=== PATIENT | male | born 2000 | race Hispanic/Latino ===

== ENCOUNTER 2021-09-09 18:31 | Emergency (ER) | payer OTHER, SELFPAY ==
[2021-09-09 18:50] VITALS: BP 152/79; PULSE 99; RESP 16; TEMP 37.5; O2SAT 100
--- NOTE | 2021-09-09 18:55 | ED.MALEGU ---
HPI - Male Genitourinary General Chief complaint: Urogenital-Male Stated complaint: STD Time Seen by Provider: 09/09/21 18:55 Source: patient and RN notes reviewed Mode of arrival: ambulatory Limitations: no limitations History of Present Illness HPI Narrative: 20-year-old male presented for complaints of burning at the tip of his penis since 09/01/2021. Burning sensation is constant but decreases in intensity at times. He states it does not increase when he urinates. Endorses recent unprotected sexual activity, stating his partner received negative STD tests on 09/03/2021. He denies any open lesions, or penile discharge. Denies associated abdominal pain, back pain, nausea, vomiting, fevers or chills. Related Data Home Medications Medication Instructions Recorded Confirmed No Home Medications 09/09/21 09/09/21 Allergies Allergy/AdvReac Type Severity Reaction Status Date / Time No Known Allergies Allergy Verified 09/09/21 18:56 Review of Systems Review of Systems: CONSTITUTIONAL: Denies body aches, fever, chills, or sweats. CARDIOVASCULAR: Denies chest pain, palpitations, or edema. RESPIRATORY: Denies cough or dyspnea. GASTROINTESTINAL: Denies abdominal pain, nausea, vomiting, or diarrhea. GENITOURINARY: denies dysuria, frequency, urgency, hematuria, flank pain SKIN: Denies rash, itching, or wounds. MUSCULOSKELETAL: Denies back pain or myalgia. PMFSH Comments At time of signature, I have reviewed and agree with nursing past medical, surgical, social and family history unless otherwise noted. Please see nursing chart for further information. There is no relevant family history pertinent to the presenting complaint Exam Narrative: GENERAL: Well-appearing and in no acute distress. ENT: Mucous membranes pink and moist. CHEST: Clear to auscultation. HEART: Regular rate and rhythm. ABDOMEN: Soft, nontender, nondistended, normal active bowel sounds. No CVA tenderness. Declined exam NEURO: No focal deficits. Alert and oriented x3. Gait steady. PSYCH: Normal affect. Course Course Emergency Course: Patient is aware of diagnosis, understands and agrees to treatment plan. Anticipatory guidance given. Patient agrees to follow-up as directed and is aware of reasons to seek care at the emergency department. Portions of this record may have been created with voice recognition software Level of Care: Express Care Visit Vital Signs Vital signs: Vital Signs Temperature 99.5 F 09/09/21 18:50 Pulse Rate 99 09/09/21 18:50 Respiratory Rate 16 09/09/21 18:50 Blood Pressure 152/79 H 09/09/21 18:50 Pulse Oximetry 100 09/09/21 18:50 Oxygen Delivery Room Air 09/09/21 18:50 Temperature 99.5 F 09/09/21 18:50 Pulse Rate 99 09/09/21 18:50 Respiratory Rate 16 09/09/21 18:50 Blood Pressure 152/79 H 09/09/21 18:50 Pulse Oximetry 100 09/09/21 18:50 Oxygen Delivery Room Air 09/09/21 18:50 Reviewed MDM - Male Genitourinary MDM Narrative Medical decision making narrative: patient presenting with concern for STD. Urine specimen collected for GC, chlamydia, trich. Informed Pt will be contacted w/ results when they become available if they are positive. Discussed with patient that it takes up to 7 days for results of cultures to be released and explained that we may treat empirically at this time. Declines treatment at this time and will return should tests be positive. Declines exam. I have instructed the patient to return to the ER at any time if there are any new or worsening symptoms. The patient expressed understanding of and agreement with this plan. Differential Diagnosis Differential diagnosis: Likely urinary tract infection and urethritis Lab Data Labs: Lab Results 09/09/21 09/09/21 Range/Units 19:05 19:10 C.trachomatis RNA (TMA) Pending N.gonorrhoeae RNA (TMA) Pending T. vaginalis Amp RNA Pending Urine Glucose
--- NOTE | 2021-09-09 20:04 | PC.NURSE ---
Visual inspection originally denied, then requested at time of discharge by patient. Chaperoned inspection completed by MELIDA Mcnulty. No obvious abnormalities noted to penis, no discharge or lesions.
== END 2021-09-09 20:10 | disposition home or self-care (01) ==
PROVIDERS: Emergency Provider Nurse Practitioner Family
DX: Z20.2 Contact with and (suspected) exposure to infections with a predominantly sexual mode of transmission (principal)
CPT/HCPCS: 81003; 87491; 87591; 87661; 99214; G0463

== ENCOUNTER 2022-03-01 04:49 | Emergency (ER) | payer OTHER, SELFPAY ==
--- NOTE | 2022-03-01 04:55 | CT_ITS ---
ACCESSION NUMBER: [id number] EXAMINATION: CT BRAIN W/O DATE: 03/01/2022 05:20 INDICATION: Status post fall downstairs. TECHNIQUE: Computed tomography (CT) of the head was performed without intravenous contrast. The dose-length product was 605.33 mGy-cm. Automated exposure control and iterative reconstruction technique were employed. COMPARISON: No prior studies for comparison. FINDINGS: Normal brain parenchymal volume for age. Normal martinez-white differentiation. No acute intracranial hemorrhage, infarction, mass or mass effect. No ventriculomegaly or midline shift. Midline sagittal images demonstrate a normal corpus callosum, craniovertebral junction and sella turcica. Basilar cisterns are patent. Paranasal sinuses and mastoids are pneumatized. No depressed skull fractures. There is a right parietal scalp hematoma. IMPRESSION: 1. No acute intracranial abnormality. TMENT MAINTENANCE KHADIJAHD
--- NOTE | 2022-03-01 04:55 | CT_ITS ---
ACCESSION NUMBER: [id number] EXAMINATION: CT cervical spine wo con DATE: 03/01/2022 05:20 INDICATION: Status post fall. Neck pain. TECHNIQUE: Computed tomography (CT) of the cervical spine was performed without intravenous contrast. The dose-length product was 556 mGy-cm. Automated exposure control and iterative reconstruction technique were employed. COMPARISON: None FINDINGS: No acute fracture, subluxation or dislocation. Vertebral body and disc heights are preserved. Craniovertebral junction is normal. Odontoid process is normal. No evidence for perched facet. Lung apices are normal. No significant paraspinal soft tissue abnormality. IMPRESSION: 1. No acute abnormality of the cervical spine. RANCE VERIFY REP PIEDAD
[2022-03-01 04:57] VITALS: BP 135/76; PULSE 92; RESP 16; TEMP 36.5; O2SAT 98
--- NOTE | 2022-03-01 05:56 | PC.NURSE ---
patient resting in bed with blankets at this time family at bedside.
--- NOTE | 2022-03-01 06:24 | ED.HEATRA ---
HPI - Head Injury General Chief complaint: Head Injury Stated complaint: head injury Time Seen by Provider: 03/01/22 04:51 Source: patient and family Mode of arrival: wheelchair Limitations: intoxication History of Present Illness HPI Narrative: 21-year-old otherwise healthy was brought in by sister with complaints of fall. Patient states that he had been drinking alcohol slid down the stairs and fell complains of laceration to the head. He denies any headache or neck pain. No other injuries. MD Complaint: head injury Mechanism of Injury: other (Intoxicated, lost balance and fell) Place: home Loss of Consciousness: no Location of injury: parietal Severity: moderate Radiation: none Other Injuries: none Related Data Allergies Allergy/AdvReac Type Severity Reaction Status Date / Time No Known Allergies Allergy Verified 09/09/21 18:56 Review of Systems Review of Systems: All systems reviewed & are unremarkable except as noted in HPI and below Constitutional: Constitutional: Reports no additional constitutional complaints Eyes: Eyes: Reports no additional eye complaints ENT: Reports system reviewed and no additional complaints, except as documented Cardiovascular: Cardiovascular: Reports no additional cardiovascular complaints Respiratory: Respiratory: Reports no additional respiratory complaints Gastrointestinal: Gastrointestinal: Reports no additional gastrointestinal complaints Musculoskeletal: Musculoskeletal: Reports no additional musculoskeletal complaints Exam Narrative: GENERAL: Well-appearing, well-nourished, and in no acute distress. Intoxicated HEAD: Normocephalic, atraumatic.laceration on the scalp about 6 cms with moderate bleeding EYES: PERRLA and EOMI. ENT: Nares clear, no rhinorrhea or epistaxis. Mucous membranes moist.strong smell of alcohol NECK: Supple. CHEST: Clear to auscultation. No respiratory distress. HEART: Regular rate and rhythm. No murmur heard. Normal peripheral pulses. ABDOMEN: Soft, nontender, nondistended, normal active bowel sounds. EXTREMITIES: Normal range of motion. No edema. SKIN: Warm, dry, no rash. NEURO: No focal deficits. Alert and oriented x3. PSYCH: Normal mood and affect. Course Course Emergency Course: Notified patient and assisted with mathematical technician about his CAT scan findings. She feels comfortable taking him home Vital Signs Vital signs: Vital Signs Temperature 36.5 C 03/01/22 04:57 Pulse Rate 92 03/01/22 04:57 Respiratory Rate 16 03/01/22 04:57 Blood Pressure 135/76 03/01/22 04:57 Pulse Oximetry 98 03/01/22 04:57 Temperature 36.5 C 03/01/22 04:57 Pulse Rate 92 03/01/22 04:57 Respiratory Rate 16 03/01/22 04:57 Blood Pressure 135/76 03/01/22 04:57 Pulse Oximetry 98 03/01/22 04:57 Procedures Laceration Laceration 1: Date: 03/01/22 Time: 04:45 Site: scalp (Parietal area ) Size (cm): 6 Description: linear Depth: simple, single layer Local Anesthetic: lidocaine 1% and with epi Amount of anesthesia used (mL): 9 Pre-repair: irrigated ====== Skin Level ====== Skin layer closed with: bri (16) ====== Subcutaneous Layer ====== ====== Muscle Layer ====== ====== Tendon Layer ====== MDM - Head Injury Differential Diagnosis Differential diagnosis: Likely concussion without loss of consciousness, closed head injury, subarachnoid hematoma and concussion with loss of consciousness Imaging Data Radiologist's impression: CT of the CT head without contrast shows no acute intracranial abnormality. Scalp hematoma overlying the right parietal bone measuring [address] of the C-spine shows no evidence of acute displaced fracture or dislocation within the cervical spine loss of cervical lordosis which can be seen in patient positioning or muscle spasm Discharge Plan Discharge Clinical Impression: Alcohol intoxication
== END 2022-03-01 06:45 | disposition home or self-care (01) ==
PROVIDERS: Emergency Provider Family Medicine
DX: S01.01XA Laceration without foreign body of scalp, initial encounter (principal); F10.129 Alcohol abuse with intoxication, unspecified; Y90.9 Presence of alcohol in blood, level not specified; W10.9XXA Fall (on) (from) unspecified stairs and steps, initial encounter
CPT/HCPCS: 12002; 70450; 72125; 99284